=== PATIENT | male | born 1985 | race Caucasian/White ===

== ENCOUNTER 2019-04-23 18:16 | Emergency (ER) | payer OTHER ==
[~2019-04-23] VITALS: Ht 182.9 cm; Wt 88.5 kg
[2019-04-23] MEDS ORDERED: BACTRIM DS TAB1 EACH PO (19:34)
== END 2019-04-23 20:06 | disposition home or self-care (01) ==
LOC: ED 18:16
DX: S60.512A Abrasion of left hand, initial encounter (principal); L03.114 Cellulitis of left upper limb; Y04.8XXA Assault by other bodily force, initial encounter
CPT/HCPCS: 99283

== ENCOUNTER 2023-06-08 18:02 | Emergency (ER) | payer BC ==
[~2023-06-08] VITALS: Ht 182.9 cm; Wt 91.4 kg
[~2023-06-08 18:02] MED LIST: BACTRIM DS TAB1 EACH PO
[2023-06-08] MEDS ORDERED: SODIUM CHLORIDE 0.9% 1,000 ML IV ONE (20:45)
[2023-06-08 20:59] LABS: BILIRUBIN, URINE NEGATIVE (negative); BLOOD/HGB, URINE NEGATIVE (Negative); KETONE, URINE NEGATIVE (Negative); LEUK ESTERASE, URINE NEGATIVE (negative); NITRITE, URINE NEGATIVE (negative); PH, URINE 5.5 (5-7)
[2023-06-08 21:03] LABS: BASOPHILS 1.1 % (0-2); EOSINOPHILS 3.8 % (0-6); HEMATOCRIT 45.5 % (35.0-50.0); HEMOGLOBIN 15.5 g/dL (12.0-18.0); LYMPHOCYTES 29.2 % (24-44); MCH 29.7 (27-36); MCV 87.3 fl (81-99); MONOCYTES 8.9 % (0-12); PLATELET COUNT 302 K/uL (140-440); RBC 5.21 M/ul (4.3-5.7); RDW 13.4 (10.5-15.0)
[2023-06-08 21:17] LABS: ALBUMIN 3.7 g/dL (3.4-5.0); ALBUMIN/GLOBULIN RATIO 1.06 (1.1-2.4); ANION GAP 13.7 (7-21); BILIRUBIN, TOTAL 0.3 ng/dL (0.2-1.0); BUN/CREATININE RATIO 21.29 (6.0-28.6); CALCIUM 8.8 mg/dL (8.5-10.1); CREATININE, SERUM 1.08 mg/dL (0.70-1.30); POTASSIUM 3.7 mmol/L (3.5-5.1); PROTEIN, TOTAL 7.2 g/dL (6.4-8.2)
[2023-06-08 21:57] VITALS: BP 112/74
== END 2023-06-08 21:57 | disposition home or self-care (01) ==
LOC: ED 18:02
PROVIDERS: Family Medicine
DX: R31.0 Gross hematuria (principal)
CPT/HCPCS: 36415; 74176; 80053; 81003; 85025; J7030